=== PATIENT | male | born 1975 | race Caucasian/White ===

== ENCOUNTER 2020-08-20 18:20 | Emergency (ER) | payer SELFPAY ==
[~2020-08-20] VITALS: Ht 177.8 cm; Wt 109.1 kg
--- NOTE | 2020-08-20 18:26 | PHYS DOC ---
Past History Smoking: Cigarettes General Adult HPI: HPI: ".. 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 I was bent over taking a box of juice off the lower shelf... When I turn while picking up I felt a sharp pop in my lower back.... Since that time pain is been running into this right hip and leg...." Patient is a 45 year old male [id number] employee who presents with above hx and complaints severe lumbar sacral pain that radiates into his right hip and leg. Patient has obvious muscle spasm lumbar area. Pain appears to follow the sciatic nerve on the right. Patient denies any loss of sensation gluteal or perineal area. Patient denies any history of immunosuppression. No history of IV drug use. No history of fever or chills. Patient does smoke tobacco. No history of prior episodes of back pain or sciatica. Patient reports he is normally healthy. Review of Systems: Review of Systems: Constitutional: Denies fever or chills Eyes: Denies change in visual acuity HENT: Denies nasal congestion or sore throat Respiratory: Denies cough or shortness of breath Cardiovascular: Denies chest pain or edema GI: Denies abdominal pain, nausea, vomiting, bloody stools or diarrhea : Denies dysuria Musculoskeletal: Complains of severe lumbar sacral pain that radiates into his right hip and leg Integument: Denies rash Neurologic: Denies headache, focal weakness or sensory changes Endocrine: Denies polyuria or polydipsia Lymphatic: Denies swollen glands Psychiatric: Denies depression or anxiety Family History: Family History: Noncontributory to presentation. Current Medications: Current Meds: See nursing for home meds Allergies: Allergies: No known drug allergies Physical Exam: PE: Constitutional: In acute distress, non-toxic appearance. [] HENT: Normocephalic, atraumatic, bilateral external ears normal, oropharynx moist, no oral exudates, nose normal. [] Eyes: PERRLA, EOMI, conjunctiva normal, no discharge. [] Neck: Normal range of motion, no tenderness, supple, no stridor. [] Cardiovascular:Heart rate regular rhythm, no murmur [] Lungs & Thorax: Bilateral breath sounds equal apex with scattered wheezes on auscultation [] Abdomen: Bowel sounds normal, soft, no tenderness, no masses, no pulsatile mass es. [] Skin: Warm, dry, no erythema, no rash. [] Back: No tenderness, no CVA tenderness. Except the lumbar sacral muscle spasms and sciatic nerve tenderness on right Extremities: No tenderness, no cyanosis, no clubbing, ROM intact, no edema. Straight leg lift on the right exacerbates his low back pain Neurologic: Alert and oriented X 3, normal motor function, normal sensory function, no focal deficits noted. DTRs +2 at patella. Psychologic: Affect anxious, judgement normal, mood normal. [] EKG: EKG: [] Radiology/Procedures: Radiology/Procedures: [][address] [address] IMAGING REPORT Signed PATIENT: JANI AKINS ACCOUNT: [id number] : 1975 LOCATION: ER AGE: 45 SEX: M EXAM STATUS: REG ER ORD. PHYSICIAN: PJ CUELLAR MD REASON: severe pain after lifting box of juice off lower shelf at work PROCEDURE: CT LUMBAR SPINE WO CONTRAST EXAM: CT lumbar spine without IV contrast CLINICAL HISTORY:Reason: severe pain after lifting box of juice off lower shelf at work / Spl. Instructions: / History: COMPARISON: None available. TECHNIQUE: Helical CT was performed through the lumbar spine. Axial, coronal and sagittal reformatted images were generated. PQRS compliance statement - One or more of the following individualized dose reduction techniques were utilized for this study: 1. Automated exposure control 2. Adjustment of the mA and/or kV according to patient size 3. Use of iterative reconstruction technique FINDINGS: 5 nonrib-bearing lumbar-type vertebral bodies. Vertebral body heights are preserved. Disc heights are grossly preserved. Schmorl's nodes are seen at L1 and L2. No spondylolisthesis. Mild straightening of the normal lumbar lordosis. Trace wedging of the L1 vertebral body likely physiologic wedging. Mild generalized disc bulge is seen at L2-3 and L3-4 resulting in mild central canal stenosis. Aortic calcifications are seen. IMPRESSION: No acute fracture or subluxation. Electronically signed by: Joe Brown MD (08/20/2020 7:53 PM) [facility] DICTATED AND SIGNED BY: JOE BROWN MD DATE: 08/20/201939 CC: PJ CUELLAR MD; PCP,NO ~MTH0 0 Heart Score: Risk Factors: Risk Factors: DM, Current or recent (<one month) smoker, HTN, HLP, family history of CAD, obesity. Risk Scores: Score 0 - 3: 2.5% MACE over next 6 weeks - Discharge Home Score 4 - 6: 20.3% MACE over next 6 weeks - Admit for Clinical Observation Score 7 - 10: 72.7% MACE over next 6 weeks - Early Invasive Strategies Course & Med Decision Making: Course & Med Decision Making Pertinent Labs and Imaging studies reviewed. (See chart for details) Patient use ice packs as needed for pain relief. Rest. Take Tylenol and ibuprofen for pain. May take Flexeril 10 mg up to 3 times a day for muscle spasms. For marked pain may take Vicoprofen up to 4 times a day. Follow-up with workman comp. Return if any concerns. May need further evaluation if no improvement. CT tonight showed no obvious fracture or significant cord compression. Consider MRI if no improvement. Must keep work comp followup. Impression: 1. Neck sprain 2. Sciatica right [] Dragon Disclaimer: Dragon Disclaimer: This electronic medical record was generated, in whole or in part, using a voice recognition dictation system. Departure Departure: Referrals: PCP,NO (PCP) Scripts Hydrocodone/Ibuprofen (HYDROCODONE-IBUPROFEN 7.5-200 ) 1 Each Tablet 1 TAB PO PRN Q6HRS PRN for PAIN, #30 TAB 0 Refills Prov: PJ CUELLAR MD 08/20/20 Cyclobenzaprine Hcl (CYCLOBENZAPRINE HCL) 10 Mg Tablet 10 MG PO TID PRN PRN for muscle spasm, #30 TAB Prov: PJ CUELLAR MD 08/20/20 Dragon Disclaimer This chart was dictated in whole or in part using Voice Recognition software in a busy, high-work load, and often noisy Emergency Department environment. It may contain unintended and wholly unrecognized errors or omissions. PJ CUELLAR MD Aug 20, 2020 18:26
[2020-08-20] MEDS: MORPHINE SULFATE 10 MG/ML SYRINGE. SQ ONE (19:47)
[2020-08-20] MEDS: ORPHENADRINE CITRATE 60 MG/2 ML VIAL. IM ONE (19:52)
[2020-08-20] MEDS: KETOROLAC 60 MG/2 ML VIAL. IM ONE (19:53)
--- NOTE | 2020-08-20 19:56 | RAD ---
EXAM: CT lumbar spine without IV contrast CLINICAL HISTORY:Reason: severe pain after lifting box of juice off lower shelf at work / Spl. Instru ctions: / History: COMPARISON: None available. TECHNIQUE: Helical CT was performed through the lumbar spine. Axial, coronal and sagittal reformatted images were generated. PQRS compliance statement - One or more of the following individualized dose reduction techniques wer e utilized for this study: 1. Automated exposure control 2. Adjustment of the mA and/or kV according to patient size 3. Use of iterative reconstruction technique FINDINGS: 5 nonrib-bearing lumbar-type vertebral bodies. Vertebral body heights are preserved. Disc heights are grossly preserved. Schmorl's nodes are seen at L1 and L2. No spondylolisthesis. Mild straightening o f the normal lumbar lordosis. Trace wedging of the L1 vertebral body likely physiologic wedging. Mild generalized disc bulge is seen at L2-3 and L3-4 resulting in mild central canal stenosis. Aortic calcifications are seen. IMPRESSION: No acute fracture or subluxation. Electronically signed by: Joe Brown MD (08/20/2020 7:53 PM) [facility]
[2020-08-20] MEDS ORDERED: HYDR-1179 PO (20:17)
[2020-08-20] MEDS ORDERED: CYCL-331 PO (20:17)
[2020-08-20 20:21] VITALS: BP 118/73
[2020-08-20] MEDS: ONDANSETRON ODT 4 MG TAB.RAPDIS PO ONE (20:30)
== END 2020-08-20 20:34 | disposition home or self-care (01) ==
LOC: ER 18:20
DX: S13.9XXA Sprain of joints and ligaments of unspecified parts of neck, initial encounter (principal); M54.41 Lumbago with sciatica, right side; F17.210 Nicotine dependence, cigarettes, uncomplicated; X50.9XXA Other and unspecified overexertion or strenuous movements or postures, initial encounter; Y93.89 Activity, other specified; Y92.89 Other specified places as the place of occurrence of the external cause; Y99.8 Other external cause status
CPT/HCPCS: 72131; 96372; 99284; J1885; J2270; J2360; Q0162